=== PATIENT | male | born 1985 | race Caucasian/White ===

== ENCOUNTER 2022-04-21 15:41 | Emergency (ER) | payer OTHER ==
[2022-04-21 16:00] VITALS: BP 154/94
--- NOTE | 2022-04-21 18:20 | ED Physician Documentation ---
History of Present Illness - Stated complaint Stated Complaint: L INDEX FINGER LAC - Chief complaint Chief Complaint: Laceration - Additonal information Additional information: 37-year-old male presents emergency department for evaluation of acute injury to the dorsum of the left index finger. He was using a pocket knife to open a package. He is right-hand dominant. Bleeding controlled with pressure. Reports tetanus is up-to-date. Review of Systems Constitutional: denies: Fever, Chills Eyes: reports: Reviewed and negative Nose: reports: Reviewed and negative Throat: reports: Reviewed and negative Cardiac: reports: Reviewed and negative Skin: reports: Laceration (s) PD PAST MEDICAL HISTORY - Past Medical History Past Medical History: No Cardiovascular: None Respiratory: None Neuro: None Endocrine/Autoimmune: None GI: None : None HEENT: None Psych: Anxiety Musculoskeletal: None Derm: None - Past Surgical History Past Surgical History: No - Allergies Allergies/Adverse Reactions: Allergies Allergy/AdvReac Type Severity Reaction Status Date / Time No Known Drug Allergies Allergy Verified 04/21/22 15:57 - Social History Does the pt smoke?: No Smoking Status: Never smoker Does the pt drink ETOH?: Yes Does the pt have substance abuse?: No - Immunizations Immunizations are current?: Yes PD ED PE EXPANDED - Derm Derm: Laceration(s) (3 cm laceration on the dorsum of the left index finger between MCP and PIP joint. Normal flexion extension against resistance.) Results - Vitals Vitals: Vital Signs - 24 hr 04/21/22 15:58 Temperature 36.7 C Heart Rate 72 Respiratory 16 Rate Blood Pressure 154/94 H O2 Saturation 99 Oxygen O2 Source Room air Procedures - Laceration (location) Left index finger Length in cm: 3 Wound type: Linear, Into subcut fat Neurovascular status: Sensory intact, Motor intact Tendon involvement: Tendon intact Anesthesia: Lidocaine 1% Wound preparation: Chlorhexadine, Irrigated copiously NS Skin layer closure: Interrupted, Size #-0 - enter number (4), Sutures - enter # (4) Other: Patient tolerated well, No complications, Neurovascular intact, Dressing applied, Tetanus UTD PD MEDICAL DECISION MAKING - ED course Complexity details: considered differential, d/w patient ED course: Superficial laceration to the dorsum of the left index finger. Neurovascularly intact. No evidence of tendon injury. Routine closure at the bedside. Routine wound care and emergent return precautions discussed. Departure - Departure Disposition: 01 Home, Self Care Clinical Impression: Laceration of index finger Qualifiers: Encounter type: initial encounter Damage to nail status: without damage Foreign body presence: without foreign body Laterality: left Qualified Code(s): S61.211A - Laceration without foreign body of left index finger without damage to nail, initial encounter Condition: Stable Record reviewed to determine appropriate education?: Yes Instructions: ED Laceration Hand Comments: Your suture(s) should be removed in 7 to 10 days. In 24 hours you may remove the dressing wash gently with warm soap and water, apply any antibiotic ointment and a simple bandage. Your tetanus is up-to-date. Please attempt to keep your wound clean and dry. Do not submerge it in dirty dishwater or bath water. Return to the emergency department if you have any concerns of infection such as redness, fevers milky drainage increased pain.
[2022-04-21] MEDS: BACITRACIN ZINC OINT 1 PACKET TOP STA (18:21)
== END 2022-04-21 18:42 | disposition home or self-care (01) ==
LOC: ED 15:41
DX: S61.211A Laceration without foreign body of left index finger without damage to nail, initial encounter (principal); W26.0XXA Contact with knife, initial encounter; Y93.89 Activity, other specified
CPT/HCPCS: 12002; 99281; A9270